=== PATIENT | female | born 1965 | race Caucasian/White ===

== ENCOUNTER 2016-12-04 17:09 | Emergency (ER) | payer OTHER ==
[~2016-12-04] VITALS: Ht 160 cm; Wt 52.7 kg
[~2016-12-04 17:09] MED LIST: ADVAIR 100-501 EACH IH; ADVAIR 100/501 DISK IH; ALBUTEROL17 GM IH; AMBIEN10 M1 PO; AMBIEN10 MG PO; BENZONATATE100 MG PO; BUSPIRONE HCL15 MG PO; CEPHALEXIN500 MG PO; CLONAZEPAM2 MG PO; FLEXERIL10 MG PO; HYDROCODON-ACE1 EAC7 PO; KLONOPIN1 MG PO; LEXAPRO20 MG PO; LINZESS145 MCG PO; LOPRESSOR50 MG PO; METOPROLOL SUCC25 MG PO; MICRO-K10 ME2 PO; NAPROXEN500 MG PO; PERCOCET 5/31 TABLET PO; POTASSIUM; PRAVACHOL20 MG PO; PREDNISONE10 MG PO; PREMARIN0.625 MG PO; PROAIR HFA8.5 GM IH; PYRIDIUM100 MG PO; SPIRIVA1 INHALATI IH; SYMBICORT; SYMBICORT60 INHALAT IH; TESSALON PERLE; TESSALON PERLE100 MG PO; TRAMADOL HCL50 MG PO; TRAZODONE; TRAZODONE HCL100 MG PO; ULTRAM50 MG PO
[2016-12-04 17:14] VITALS: BP 151/118
== END 2016-12-04 19:35 | disposition left against medical advice (07) ==
LOC: EME 17:09
DX: M54.9 Dorsalgia, unspecified (principal); Z53.21 Procedure and treatment not carried out due to patient leaving prior to being seen by health care provider; M25.552 Pain in left hip; W19.XXXA Unspecified fall, initial encounter